=== PATIENT | male | born 1980 | race Caucasian/White ===

== ENCOUNTER → 2016-11-16 | Outpatient (CLI) | payer OTHER ==
[~2016-11-16] VITALS: Ht 180.3 cm; Wt 129.3 kg
[~2016-11-16] MED LIST: ACHD5005 PO; CPR500T PO; GADOBUTROL 7.5 MMOL/7.5 ML (GADAVIST) VIAL IV ONE; IOHEXOL 300 MG/ML 30 ML (OMNIPAQUE 300) VIAL IV ONE; METH4TAB PO; NAPR-243 PO; SULF1TAB35 PO
--- OUTSIDE RECORDS SUMMARY | 2016-11-16 09:12 | XMS REPORT | Continuity of Care Document ---
Author Author [facility] Address Unknown Phone Unavailable Allergies Active Description Code Type Severity Reaction Onset Reported/Identified Relationship to Patient Clinical Status Yes No Known Drug Allergies [id number] Drug Allergy Mild N/A 09/16/2009 Medications Problems Date Dx Coded Attending Type Code Diagnosis Diagnosed By 12/18/2010 401.9 HYPERTENSION (SYSTEMIC) 12/18/2010 401.9 HYPERTENSION (SYSTEMIC) 12/18/2010 BALTAZAR BAUTISTA DDS 401.9 HYPERTENSION (SYSTEMIC) 01/19/2011 311 DEPRESSIVE DISORDER NOT ELSEWHERE CLASSIFIED 01/19/2011 311 DEPRESSIVE DISORDER NOT ELSEWHERE CLASSIFIED 01/19/2011 BALTAZAR BAUTISTA DDS 311 DEPRESSIVE DISORDER NOT ELSEWHERE CLASSIFIED 10/14/2011 305.1 NONDEPENDENT TOBACCO USE DISORDER 10/14/2011 305.1 NONDEPENDENT TOBACCO USE DISORDER 10/14/2011 BALTAZAR BAUTISTA DDS 305.1 NONDEPENDENT TOBACCO USE DISORDER 10/23/2011 V01.9 CONTACT WITH OR EXPOSURE TO UNSPECIFIED COMMUNICABLE DISEASE 10/23/2011 V01.9 CONTACT WITH OR EXPOSURE TO UNSPECIFIED COMMUNICABLE DISEASE 10/23/2011 BALTAZAR BAUTISTA DDS V01.9 CONTACT WITH OR EXPOSURE TO UNSPECIFIED COMMUNICABLE DISEASE 03/20/2013 592.0 CALCULUS OF KIDNEY 03/20/2013 BALTAZAR BAUTISTA DDS 592.0 CALCULUS OF KIDNEY 08/09/2014 YENNI COLES MD Ot 278.00 08/09/2014 YENNI COLES MD Ot 724.6 08/09/2014 YENNI COLES MD Ot V58.69 08/09/2014 YENNI COLES MD Ot V85.37 Procedures Code [place] [id number] UA LONG DIP 03/20 Results Encounters ACCT No. Visit Date/Time Discharge Status Pt. Type Provider Facility Loc./Unit Complaint [id number] 10/11/2013 14:31:00 10/11/2013 23: 59:59 CLS Outpatient BALTAZAR BAUTISTA DDS [id number] 03/20/2013 16:31:00 Document Registration [id number] 03/31/2012 15:00:00 Document Registration
--- NOTE | 2016-11-16 11:28 | Diagnostic Imaging Report ---
EXAMINATION: Fluoroscopic guided joint injection/arthrogram- right. INDICATION: Right hip pain, request for MR arthrogram of the shoulder is submitted. Fluoroscopy time: 54 seconds CONSENT: Informed consent was obtained from the patient. The risks, benefits, potential complications and alternatives were reviewed and all questions answered to the patient's satisfaction. PROCEDURE: After sterile preparation and draping, 1% lidocaine was utilized for local anesthesia. A 22 spinal needle is introduced into the right hip joint under fluoroscopic guidance. After confirmation of proper positioning with intra-articular injection of, 10 ml of 1:150 concentration of Gadavist in normal saline is injected the into the joint. The patient tolerated the procedure well with no immediate complications. FINDINGS: Arthrogram demonstrates Normal distribution of contrast in the joint with no filling of adjacent bursa seen. IMPRESSION: Successful fluoroscopic guided injection of diluted gadolinium into the right hip. MR arthrogram to follow. Dictated by: Dictated on workstation # [id number]
--- NOTE | 2016-11-16 11:29 | Diagnostic Imaging Report ---
PROCEDURE: MRI right joint lower extremity with contrast. TECHNIQUE: Multiplanar, multisequence contrast-enhanced MRI of the right hip after direct intra-articular contrast administration into the right hip. COMPARISONS: None available. INDICATION: Persistent right hip pain after injury approximately 2 years ago. FINDINGS: The right hip is well distended with intra-articular contrast. The acetabular labrum is normal in morphology. Specifically, no acetabular labral tear is present. No high-grade chondromalacia in the glenohumeral joint. Ligamentum teres is intact. No proliferative synovitis or loose bodies in the right hip. No osteonecrosis of the femoral heads. Normal femoral head neck offset. No acetabular retroversion. No peritrochanteric fluid collection on either side to indicate bursitis. The distal gluteus medius and minimus tendons are intact bilaterally. Bilateral distal iliopsoas and proximal hamstring tendons are normal. No abnormality of the adductor muscles or distal rectus abdominis muscles. No free pelvic fluid. No inguinal or pelvic lymphadenopathy. No evidence of sacral insufficiency fracture. No focal marrow replacing lesion in the pelvis. IMPRESSION: 1. Right acetabular labrum is intact. 2. No chondromalacia within the hip. 3. No myotendinous abnormality about the right hip to explain patient's pain. Dictated by: Dictated on workstation # [id number]
== END ==
LOC: RAD 09:08
PROVIDERS: ATTEND Physical Medicine & Rehabilitation
DX: M25.551 Pain in right hip (principal)
CPT/HCPCS: 27093; 73525; 73722